=== PATIENT | male | born 1985 | race Caucasian/White ===

== ENCOUNTER 2024-01-23 19:59 | Emergency (ER) | payer BC, SELFPAY ==
--- NOTE | 2024-01-23 20:26 | ED.GENADULT ---
HPI - General Adult General Chief complaint: Dental/Oral Stated complaint: Dental implant pain/fever Time Seen by Provider: 01/24/24 03:41 Source: patient Mode of arrival: ambulatory History of Present Illness HPI narrative: 38-year-old male presents with complaints of persistent right upper pain and fevers 2 weeks after having a post placed by a dentist. Patient states that he was on clindamycin for 7 days afterwards and denies any improvement in pain, states he followed up with a dentist yesterday who then started him on azithromycin for suspected sinus infection in patient presents today stating that there seems to be no improvement. Related Data Previous Rx's ?Medication ?Instructions ?Recorded cephalexin 500 mg capsule 500 mg PO BID 7 days #14 caps 01/24/24 Allergies Allergy/AdvReac Type Severity Reaction Status Date / Time Penicillins Allergy Rash Verified 01/23/24 20:29 Review of Systems Review of Systems: Pertinent positives and negatives as stated in HPI [facility] Past Medical History Source: nursing notes reviewed Social History Social History Advance Directives: No Advance Directives Information Provided: Yes Do you have a plan to hurt others: No Plan Physical Exam ED Vital Signs: Vital Signs - 24 hr 01/23/24 20:27 01/24/24 01:59 01/24/24 04:28 Temperature 98.7 F 97.0 F 97.0 F Pulse Rate 104 H 73 73 Respiratory Rate 16 16 16 Blood Pressure 152/77 H 138/88 138/88 Pulse Oximetry 97 100 100 Oxygen Delivery Method Room Air Room Air Room Air BMI result Body Mass Index 23.1 VITAL SIGNS: Reviewed. GENERAL: Well developed, well nourished, in no acute distress. HEAD: Normocephalic/atraumatic EYES: PERRLA, EOMI OROPHARYNX: no oral lesions noted, posterior pharynx clear, 2 wires extending just in front of right upper molar, there is no surrounding gingival edema/erythema, I do not appreciate any gross purulence there is no evidence of abscess NECK: Supple, no adenopathy LUNGS: Normal breath sounds. No adventitious sounds or accessory muscle use. SpO2<100> CARDIOVASCULAR: Regular rate and rhythm without noted murmurs ABDOMEN: Soft, non-tender, non-distended with bowel sounds. MUSCULOSKELETAL: No tenderness, deformities, or effusions noted on gross inspection. EXTREMITIES: No cyanosis, clubbing or edema. SKIN: Inspection of the skin reveals no rashes NEUROLOGIC: Alert and oriented x 4. Strength and sensation to light touch were grossly intact x 4. Course Course Course Narrative: This is an RME: Additional HPI, ROS, PE not included below will be deferred to primary provider. This is a 38-year-old male presents emergency department with severe right-sided facial pain and fevers. He had a dental implant placed 2 weeks ago in his right upper gumline. He states that he has had persistent right-sided sinus pain. He also endorses fevers, congestion, foul taste in his mouth as well as odor of something ?dying? inside of his sinuses. He has been on azithromycin as well as clindamycin without any relief. Plan: Labs. Medications Administered Discontinued Medications Generic Name Dose Route Start Last Admin Trade Name Freq PRN Reason Stop Dose Admin Acetaminophen 975 mg 01/24/24 04:17 01/24/24 04:28 Acetaminophen 325 Mg Tablet PO 01/24/24 04:18 Not Given ONCE ONE Cephalexin HCl 500 mg 01/24/24 04:15 01/24/24 04:28 Cephalexin 500 Mg Capsule PO 01/24/24 04:16 Not Given ONCE ONE Ibuprofen 400 mg 01/24/24 04:17 01/24/24 04:28 Ibuprofen 400 Mg Tablet PO 01/24/24 04:18 Not Given ONCE ONE Medical Decision Making Medical Decision Making MDM Narrative: 38-year-old male with history and clinical presentation of possible combination of reaction to the dental post verses infection given his reports of fever though here in this emergency room he is been afebrile. We did discuss different approaches and the decision is that we will shift him from the course of azithromycin which he does not feel is working to an alternative medication that will cover both intraoral infections as well as sinus and he was provided with combination analgesics and initial antibiotics. I reviewed all investigations and hematologic indices were negative for leukocytosis or left shift and there is a normocytic anemia without thrombocytopenia. Chemistry indices were negative for ROSELINE/electrolyte or liver enzyme derangements and viral testing is negative for influenza/RSV/COVID-19. I was informed by nursing that patient left without receiving initial medication or discharge paperwork. Differential Diagnosis Differential Diagnoses: The differential diagnosis associated with the presentation includes Please see the discussion above Admission/Observation Consideration of admission/observation: Escalation of care including admission/observation considered Please see the discussion above Lab Data MDM Lab Attestation statement: I reviewed the patient's lab results. Please see the discussion above 01/23/24 21:10 01/23/24 21:10 Labs: Lab Results 01/23/24 Range/Units 21:10 WBC 8.8 (4.8-10.8) X10*3/uL RBC 4.41 L (4.60-5.80) X10*6/uL Hgb 13.8 L (14.0-18.0) g/dl Hct 39.7 L (42.0-52.0) % MCV 90.0 (80.0-98.0) fL MCH 31.3 (27.0-33.0) pg MCHC 34.8 (31.0-36.0) g/dl RDW 11.9 (11.0-16.0) % Plt Count 245 (160-400) X10*3/uL MPV 9.0 L (9.4-12.4) fL Immature Gran % (Auto) 0.1 (0.0-0.4) % Neut % (Auto) 72.4 (45-73) % Lymph % (Auto) 18.9 L (20-40) % Morehouse % (Auto) 7.8 (2-11) % Eos % (Auto) 0.5 (0-4) % Baso % (Auto) 0.3 (0-2) % Lymph # (Auto) 1.7 (1.2-4.9) X10*3/uL Morehouse # (Auto) 0.7 (0.1-1.2) X10*3/uL Eos # (Auto) 0.0 (0.0-0.4) X10*3/uL Baso # (Auto) 0.0 (0.0-0.2) X10*3/uL Abs Immat Gran (auto) 0.01 (0.00-0.03) X10*3/uL Absolute Neuts (auto) 6.4 (2.0-8.3) x10*3/uL Absolute Nucleated RBC 0.000 (0.0-0.012) X10*3/uL Nucleated RBC % (auto) 0.0 (0.0-0.2) /100WBC Sodium 139 (135-145) mmol/L Potassium 4.1 (3.3-5.1) mmol/L Chloride 102 (96-108) mmol/L Carbon Dioxide 29 (22-29) mmol/L Anion Gap 12 (12-20) BUN 12 (9-16) mg/dL Creatinine 0.78 (0.5-1.4) mg/dL Estim Creat Clear Calc 127.1 Estimated GFR > 60 Random Glucose 111 (60-115) mg/dL Calcium 10.3 H (8.4-10.2) mg/dL Total Bilirubin 0.5 (0.0-1.0) mg/dL Direct Bilirubin 0.2 (0.0-0.5) mg/dL AST 20 (5-37) U/L ALT 14 (0-40) U/L Alkaline Phosphatase 60 (39-117) U/L Total Protein 7.8 (6.5-8.0) g/dL Albumin 4.5 (3.5-5.0) g/dL Influenza Type A (PCR) NEGATIVE (Negative) Influenza Type B (PCR) NEGATIVE (Negative) RSV RNA Qual (PCR) NEGATIVE (Negative) SARS-CoV-2 RNA (RT-PCR) NEGATIVE (Negative) Critical Care Time Critical Care Time Critical Care Time: Yes Total Critical Care Time: 30 Attestation: I personally attest to this time spent taking care of the patient. Discharge Plan Discharge Clinical Impression: Toothache, Infection of tooth Patient Disposition: Elopement Instructions: Toothache (ED) Additional Instructions: Stop taking the azithromycin Start taking the cephalexin, obviously if you develop any rash/difficulty breathing or facial swelling please stop taking the medication immediately and proceed to the emergency room. Follow-up with Dr. Babin today Return to the ER for any worsening symptoms Prescriptions: New cephalexin 500 mg capsule 500 mg PO BID 7 Days Qty: 14 0RF Referrals: Manuel Biggs MD [Primary Care Provider] - Interventions: ED Discharge Assessment Last Done: 01/24/24 04:28 Discharge Date/Time: 01/24/24 04:30 Print Language: Maltese
[2024-01-23 20:27] VITALS: BP 152/77; PULSE 104; RESP 16; TEMP 37.1; O2SAT 97; BMI 23.1
[2024-01-23 21:16] LABS: MANUAL DIFF FLAG NO
--- NOTE | 2024-01-23 21:16 | MHC.EDTECH ---
Patient blood drawn and rsv/covid swab collected and sent to lab .
[2024-01-23 21:20] LABS: Basophils Percent Auto 0.3 % (0-2); Eosinophils Percent Auto 0.5 % (0-4); Hematocrit 39.7 % (42.0-52.0); Hemoglobin 13.8 g/dl (14.0-18.0); Imm Gran Abs Auto 0.01 X10*3/uL (0.00-0.03); Imm Gran Pct Auto 0.1 % (0.0-0.4); Lymphocytes Absolute Auto 1.7 X10*3/uL (1.2-4.9); Lymphocytes Percent Auto 18.9 % (20-40); Mean Corpuscular HGB Conc 34.8 g/dl (31.0-36.0); Mean Corpuscular Hemoglobin 31.3 pg (27.0-33.0); Monocytes Absolute Auto 0.7 X10*3/uL (0.1-1.2); Monocytes Percent Auto 7.8 % (2-11); Neutrophils Absolute Auto 6.4 x10*3/uL (2.0-8.3); Neutrophils Percent Auto 72.4 % (45-73); Platelet Count 245 X10*3/uL (160-400); Red Blood Count 4.41 X10*6/uL (4.60-5.80); Red Cell Distribution Width 11.9 % (11.0-16.0); White Blood Count 8.8 X10*3/uL (4.8-10.8)
[2024-01-23 21:35] LABS: Alanine Aminotransferase 14 U/L (0-40); Albumin Level 4.5 g/dL (3.5-5.0); Alkaline Phosphatase 60 U/L (39-117); Anion Gap 12 (12-20); Aspartate Amino Transferase 20 U/L (5-37); Bilirubin Direct 0.2 mg/dL (0.0-0.5); Bilirubin Total 0.5 mg/dL (0.0-1.0); Blood Urea Nitrogen 12 mg/dL (9-16); Calcium 10.3 mg/dL (8.4-10.2); Carbon Dioxide 29 mmol/L (22-29); Chloride 102 mmol/L (96-108); Creatinine Clr Calc Pharmacy 127.1; Estimated Glomerular Filt Rate > 60; Glucose Random 111 mg/dL (60-115); Potassium 4.1 mmol/L (3.3-5.1); Sodium 139 mmol/L (135-145); Total Protein 7.8 g/dL (6.5-8.0)
[2024-01-23 22:01] LABS: Influenza A PCR NEGATIVE (Negative); Influenza B PCR NEGATIVE (Negative); Resp Syncy Virus RNA Qual PCR NEGATIVE (Negative); SARS COV2 PCR INHOUSE NEGATIVE (Negative)
[2024-01-24 01:59] VITALS: BP 138/88; PULSE 73; RESP 16; TEMP 36.1; O2SAT 100
--- NOTE | 2024-01-24 04:10 | PC.NURSE ---
pt not in the room at this time. pt has been in the room 10 min waiting to be seen by provider
[2024-01-24 04:28] VITALS: BP 138/88; PULSE 73; RESP 16; TEMP 36.1; O2SAT 100
== END 2024-01-24 04:30 | disposition left against medical advice (07) ==
PROVIDERS: Physician Assistant Medical; Emergency Provider Student in an Organized Health Care Education/Training Program; PCP Internal Medicine
DX: K04.7 Periapical abscess without sinus (principal); K08.89 Other specified disorders of teeth and supporting structures; Z88.0 Allergy status to penicillin; Z98.890 Other specified postprocedural states; Z03.818 Encounter for observation for suspected exposure to other biological agents ruled out
CPT/HCPCS: 0241U; 80048; 80076; 85025; 99283

== ENCOUNTER 2025-07-31 15:48 | Outpatient (REF) | payer SELFPAY ==
--- OUTSIDE RECORDS SUMMARY | 2025-07-15 04:00 | XMS_ITS ---
Author Organization [facility] [address] Address [address] [place] [address] Care Team Providers Care Core Dropper Name Role Phone CINTHIA SANTOS Unavailable [phone] Encounters Encounter Location Date Provider Diagnosis [facility] [address] [place] [address] 07/15/2025 CINTHIA SANTOS Plan Of Treatment Next Appt Details Provider Name:CINTHIA SANTOS, 08:00:00 AM, [address] [facility], [place], [address], Progress Notes * AVELINA KHAN ADOB: [birth year] (39 yo M)Acc No.[id number]:07/15/2025 CPE Patient: AVELINA MATA Provider: Nehemiah SANTOS PA-C :1985 A ge:39 Y S ex:Male Date:07/15/2025 Address:[address] [place], [place] [phone] Subjective: * Chief Complaints: * * Medical History: Objective: * Vitals: Assessment: Plan: * Treatment: * Images: Billing Information: * Visit Code: * Procedure Codes: Care Plan Details* * Electronic signature of JENNIFER SANTOS PA-C on 07/31/2025 at 06:13 PM EDT Sign off status: Pending * Provider: Nehemiah SANTOS PA-C Date: Generated for Pat marsh/Faamari/eTransmitting on: 06:13 PM EDT
--- OUTSIDE RECORDS SUMMARY | 2025-07-31 06:15 | XMS_ITS ---
Author Organization [facility] [address] Address [address] [place] [address] Care Team Providers Care [employer] Name Role Phone TOM CINTHIA Unavailable [phone] Allergies Allergen (clinical drug ingredient) Drug/Non Drug Allergy documented on EMR Reaction Allergy Type Onset Date Status PCN (uncoded) hives Allergy Active amoxicillin Amoxicillin hives Drug Allergy Act maciej REASON FOR VISIT Patient is here for his Annual Physical Exam. No labs for this visit Medications Medication SIG (Take, Route, Fr equency, Duration) Notes Start Date End Date Status LORazepam 1 MG 1 tab Orally twice a day; Duration: 30 days 07/15/2025 Active Zubsolv 5.7-1.4 MG 1 tablet under the t ongue and allow to dissolve Sublingual Once a day Active Vital Signs Heart Rate 83 /min 07/31/2025 Blood pressure systolic 126 mm Hg 07/31/20 25 Blood pressure diastolic 74 mm Hg 025 Weight 156.0 lbs 07/31/2025 BMI 23.03 kg/m2 07/31/2025 Height 69 in 07/31/2025 Oximetry 97 % 07/31/2025 Encounters Encounter Location Date Provider Diagnosis [facility] [address] [place] [address] 07/31/2025 CINTHIA SANTOS Low testosterone R79 .89 ; Adult general medical exam Z00.00 ; History of opioid abuse F11.11 ; Hyperlipemia, mixed E78.2 ; Anxiety F41.9 and Encounter for examination of blood pressure without abnormal findings Z01.30 Assessments Encounter Date Diagnosis (ICD Code) Assessment Notes Treatment Notes Treatment Clinical Notes Section Notes 07/31/2025 Low testosterone (ICD-10 - R79.89) Avelina is a 39-year-old male with a past medical history of addiction, hyperlipidemia and anxiety who presents to the office today for a physical exam. #Health maintenance: Declines flu vaccine today. Will be due for his tetanus vaccination in 2025. No longer obtains COVID vaccinations. #Weight loss: Patient noted to have a weight loss from 164.9 pounds in January 2025, today's weight 156.0. Patient admits that his weight loss could be due to the amount of stress that he is enduring at this time as he lost his father in December and he unfortunately lost his job. He has started with [facility] and he states that the job so far is going well which is reassuring. Patient declines therapy resources at this time, however I did educate patient to call the office if he feels as though he would benefit from referral #History of addiction: Continue Zubsolv with [facility] prescriber once a month... #Anxiety: Continue lorazepam 1 mg tablet as needed twice daily #Constipation: Patient overall states that his constipation has improved, has a bowel movement every other day. More than likely contributed towards Zubsolv at this time. #Low testosterone: Patient did have a testosterone level completed on 12/06/2024 with a value of 252, therefore free testosterone, total, sex binding hormone and aids CMP have been ordered in preparation of potential testosterone replacement therapy.. Depending on results, will have patient follow-up with attending physician Dr. Biggs #Hyperlipidemia: Patient's recent lipid panel in November 2024 completed demonstrated an HDL of 38, LDL of 116. Patient encouraged to continue incorporating good fats into the diet such as avocado oil, fish oil to increase his HDL.. Physical Men Patient seen and examined. Comprehensive discussion was done on the following. 1. Nutrition: It is important to follow a healthy diet based on lots of vegetables and legumes and good fat. Avoid processed food and processed carbohydrates. Learn to prepare your own meals. Learn to read labels and avoid high fructose corn syrup, processed chemicals added to increase shelf life and preprepared meals. Avoid fast foods. Learn to eat slowly and plan meals for a week. Try to count calories and be mindful off daily calorie intake. Get into the habit of keeping an eye on your weight by using an appropriate scale. Learn to log exercise and discussed fitness Apps like myfitnesspal which can help keep log off calories taken versus calories burned. Local food should be preferred. Discussed Dirty Dozen Versus Clean Fifteen. Discussed healthy supplements like fish oil, Tumeric, Curcumin, Melatonin, Resveratrol, Probiotics, Vitamin-D, Alpha-Lipoic acid, Vitamin-D and coconut oil. 2. It is important to exercise regularly. Is a good habit to walk at least 30-45 minutes a day. Gentle weightlifting with standard precautions to protect the back. Finding activity like cycling or hiking and get into the habit of engaging in it. Stretching before and after the exercises important. It is also important to contact me if there are any problems like shortness of breath, chest pain, back pain and joint or muscle pain associated with the exercise. 3. Discussed age appropriate screening guidelines. Colonoscopy needs to start at age 50 with stool for occult blood as appropriate. There is a new test that can test for genetic abnormalities in the stool sample. This would not replace a colonoscopy but could be used as a screening tool for patients who do not want a colonoscopy. We discussed the importance of early detection of colon cancer. 4. Discussed current PSA screening. PSA screening can be done in most patients between age 50 and 65. However early detection of prostate cancer needs to carefully be balanced with complications with treatment. These include incontinence, impotence etc. Each patient should decide if they would like to have this test. 5. Discussed safe driving and no use of smart phone while driving 6. Age-appropriate immunizations were discussed. A tetanus booster is needed every 10 years. Flu vaccine is recommended every year just before the start of the flu season. Shingles vaccine is recommended after age 50 but not all insurances cover it. Pneumonia vaccine is given after age 65 unless there are certain comorbidities for which it is started earlier. 7. Diagnostic labs were discussed. These could include CBC CMP and lipids with fasting blood glucose and insulin levels. Vitamin D and hemoglobin A1c testing might be appropriate. All questions have been answered to patient's satisfaction. Patient verbalized understanding of diagnosis and treatments explained. Advised to call sooner prior to next visit it any questions/concerns arise. Case discussed with Julito KEARNS who reviewed the assessment and plan. Chart, medications, labs, vital signs reviewed. Dictation was accomplished with the use of [employer] voice recognition software, which is prone to medical misidentifications and grammatical errors. This are unintentional and the practitioner does try to identify and correct these, but some could still be present. Please do not hesitate to contact practitioner for clarification. 07/31/2025 Adult general medical exam (ICD-10 - Z00.00) Avelina is a 39-year-old male with a past medical history of addiction, hyperlipidemia and anxiety who presents to the office today for a physical exam. #Health maintenance: Declines flu vaccine today. Will be due for his tetanus vaccination in 2025. No longer obtains COVID vaccinations. #Weight loss: Patient noted to have a weight loss from 164.9 pounds in January 2025, today's weight 156.0. Patient admits that his weight loss could be due to the amount of stress that he is enduring at this time as he lost his father in December and he unfortunately lost his job. He has started with [facility] and he states that the job so far is going well which is reassuring. Patient declines therapy resources at this time, however I did educate patient to call the office if he feels as though he would benefit from referral #History of addiction: Continue Zubsolv with [facility] prescriber once a month... #Anxiety: Continue lorazepam 1 mg tablet as needed twice daily #Constipation: Patient overall states that his constipation has improved, has a bowel movement every other day. More than likely contributed towards Zubsolv at this time. #Low testosterone: Patient did have a testosterone level completed on 12/06/2024 with a value of 252, therefore free testosterone, total, sex binding hormone and aids CMP have been ordered in preparation of potential testosterone replacement therapy.. Depending on results, will have patient follow-up with attending physician Dr. Biggs #Hyperlipidemia: Patient's recent lipid panel in November 2024 completed demonstrated an HDL of 38, LDL of 116. Patient encouraged to continue incorporating good fats into the diet such as avocado oil, fish oil to increase his HDL.. Physical Men Patient seen and examined. Comprehensive discussion was done on the following. 1. Nutrition: It is important to follow a healthy diet based on lots of vegetables and legumes and good fat. Avoid processed food and processed carbohydrates. Learn to prepare your own meals. Learn to read labels and avoid high fructose corn syrup, processed chemicals added to increase shelf life and preprepared meals. Avoid fast foods. Learn to eat slowly and plan meals for a week. Try to count calories and be mindful off daily calorie intake. Get into the habit of keeping an eye on your weight by using an appropriate scale. Learn to log exercise and discussed fitness Apps like [employer] which can help keep log off calories taken versus calories burned. Local food should be preferred. Discussed Dirty Dozen Versus Clean Fifteen. Discussed healthy supplements like fish oil, Tumeric, Curcumin, Melatonin, Resveratrol, Probiotics, Vitamin-D, Alpha-Lipoic acid, Vitamin-D and coconut oil. 2. It is important to exercise regularly. Is a good habit to walk at least 30-45 minutes a day. Gentle weightlifting with standard precautions to protect the back. Finding activity like cycling or hiking and get into the habit of engaging in it. Stretching before and after the exercises important. It is also important to contact me if there are any problems like shortness of breath, chest pain, back pain and joint or muscle pain associated with the exercise. 3. Discussed age appropriate screening guidelines. Colonoscopy needs to start at age 50 with stool for occult blood as appropriate. There is a new test that can test for genetic abnormalities in the stool sample. This would not replace a colonoscopy but could be used as a screening tool for patients who do not want a colonoscopy. We discussed the importance of early detection of colon cancer. 4. Discussed current PSA screening. PSA screening can be done in most patients between age 50 and 65. However early detection of prostate cancer needs to carefully be balanced with complications with treatment. These include incontinence, impotence etc. Each patient should decide if they would like to have this test. 5. Discussed safe driving and no use of smart phone while driving 6. Age-appropriate immunizations were discussed. A tetanus booster is needed every 10 years. Flu vaccine is recommended every year just before the start of the flu season. Shingles vaccine is recommended after age 50 but not all insurances cover it. Pneumonia vaccine is given after age 65 unless there are certain comorbidities for which it is started earlier. 7. Diagnostic labs were discussed. These could include CBC CMP and lipids with fasting blood glucose and insulin levels. Vitamin D and hemoglobin A1c testing might be appropriate. All questions have been answered to patient's satisfaction. Patient verbalized understanding of diagnosis and treatments explained. Advised to call sooner prior to next visit it any questions/concerns arise. Case discussed with Julito KEARNS who reviewed the assessment and plan. Chart, medications, labs, vital signs reviewed. Dictation was accomplished with the use of [employer] voice recognition software, which is prone to medical misidentifications and grammatical errors. This are unintentional and the practitioner does try to identify and correct these, but some could still be present. Please do not hesitate to contact practitioner for clarification. 07/31/2025 History of opioid abuse (ICD-10 - F11.11) Avelina is a 39-year-old male with a past medical history of addiction, hyperlipidemia and anxiety who presents to the office today for a physical exam. #Health maintenance: Declines flu vaccine today. Will be due for his tetanus vaccination in 2025. No longer obtains COVID vaccinations. #Weight loss: Patient noted to have a weight loss from 164.9 pounds in January 2025, today's weight 156.0. Patient admits that his weight loss could be due to the amount of stress that he is enduring at this time as he lost his father in December and he unfortunately lost his job. He has started with [facility] and he states that the job so far is going well which is reassuring. Patient declines therapy resources at this time, however I did educate patient to call the office if he feels as though he would benefit from referral #History of addiction: Continue Zubsolv with [facility] prescriber once a month... #Anxiety: Continue lorazepam 1 mg tablet as needed twice daily #Constipation: Patient overall states that his constipation has improved, has a bowel movement every other day. More than likely contributed towards Zubsolv at this time. #Low testosterone: Patient did have a testosterone level completed on 12/06/2024 with a value of 252, therefore free testosterone, total, sex binding hormone and aids CMP have been ordered in preparation of potential testosterone replacement therapy.. Depending on results, will have patient follow-up with attending physician Dr. Biggs #Hyperlipidemia: Patient's recent lipid panel in November 2024 completed demonstrated an HDL of 38, LDL of 116. Patient encouraged to continue incorporating good fats into the diet such as avocado oil, fish oil to increase his HDL.. Physical Men Patient seen and examined. Comprehensive discussion was done on the following. 1. Nutrition: It is important to follow a healthy diet based on lots of vegetables and legumes and good fat. Avoid processed food and processed carbohydrates. Learn to prepare your own meals. Learn to read labels and avoid high fructose corn syrup, processed chemicals added to increase shelf life and preprepared meals. Avoid fast foods. Learn to eat slowly and plan meals for a week. Try to count calories and be mindful off daily calorie intake. Get into the habit of keeping an eye on your weight by using an appropriate scale. Learn to log exercise and discussed fitness Apps like [employer] which can help keep log off calories taken versus calories burned. Local food should be preferred. Discussed Dirty Dozen Versus Clean Fifteen. Discussed healthy supplements like fish oil, Tumeric, Curcumin, Melatonin, Resveratrol, Probiotics, Vitamin-D, Alpha-Lipoic acid, Vitamin-D and coconut oil. 2. It is important to exercise regularly. Is a good habit to walk at least 30-45 minutes a day. Gentle weightlifting with standard precautions to protect the back. Finding activity like cycling or hiking and get into the habit of engaging in it. Stretching before and after the exercises important. It is also important to contact me if there are any problems like shortness of breath, chest pain, back pain and joint or muscle pain associated with the exercise. 3. Discussed age appropriate screening guidelines. Colonoscopy needs to start at age 50 with stool for occult blood as appropriate. There is a new test that can test for genetic abnormalities in the stool sample. This would not replace a colonoscopy but could be used as a screening tool for patients who do not want a colonoscopy. We discussed the importance of early detection of colon cancer. 4. Discussed current PSA screening. PSA screening can be done in most patients between age 50 and 65. However early detection of prostate cancer needs to carefully be balanced with complications with treatment. These include incontinence, impotence etc. Each patient should decide if they would like to have this test. 5. Discussed safe driving and no use of smart phone while driving 6. Age-appropriate immunizations were discussed. A tetanus booster is needed every 10 years. Flu vaccine is recommended every year just before the start of the flu season. Shingles vaccine is recommended after age 50 but not all insurances cover it. Pneumonia vaccine is given after age 65 unless there are certain comorbidities for which it is started earlier. 7. Diagnostic labs were discussed. These could include CBC CMP and lipids with fasting blood glucose and insulin levels. Vitamin D and hemoglobin A1c testing might be appropriate. All questions have been answered to patient's satisfaction. Patient verbalized understanding of diagnosis and treatments explained. Advised to call sooner prior to next visit it any questions/concerns arise. Case discussed with Julito KEARNS who reviewed the assessment and plan. Chart, medications, labs, vital signs reviewed. Dictation was accomplished with the use of [employer] voice recognition software, which is prone to medical misidentifications and grammatical errors. This are unintentional and the practitioner does try to identify and correct these, but some could still be present. Please do not hesitate to contact practitioner for clarification. 07/31/2025 Hyperlipemia, mixed (ICD-10 - E78.2) Avelina is a 39-year-old male with a past medical history of addiction, hyperlipidemia and anxiety who presents to the office today for a physical exam. #Health maintenance: Declines flu vaccine today. Will be due for his tetanus vaccination in 2025. No longer obtains COVID vaccinations. #Weight loss: Patient noted to have a weight loss from 164.9 pounds in January 2025, today's weight 156.0. Patient admits that his weight loss could be due to the amount of stress that he is enduring at this time as he lost his father in December and he unfortunately lost his job. He has started with [facility] and he states that the job so far is going well which is reassuring. Patient declines therapy resources at this time, however I did educate patient to call the office if he feels as though he would benefit from referral #History of addiction: Continue Zubsolv with [facility] prescriber once a month... #Anxiety: Continue lorazepam 1 mg tablet as needed twice daily #Constipation: Patient overall states that his constipation has improved, has a bowel movement every other day. More than likely contributed towards Zubsolv at this time. #Low testosterone: Patient did have a testosterone level completed on 12/06/2024 with a value of 252, therefore free testosterone, total, sex binding hormone and aids CMP have been ordered in preparation of potential testosterone replacement therapy.. Depending on results, will have patient follow-up with attending physician Dr. Biggs #Hyperlipidemia: Patient's recent lipid panel in November 2024 completed demonstrated an HDL of 38, LDL of 116. Patient encouraged to continue incorporating good fats into the diet such as avocado oil, fish oil to increase his HDL.. Physical Men Patient seen and examined. Comprehensive discussion was done on the following. 1. Nutrition: It is important to follow a healthy diet based on lots of vegetables and legumes and good fat. Avoid processed food and processed carbohydrates. Learn to prepare your own meals. Learn to read labels and avoid high fructose corn syrup, processed chemicals added to increase shelf life and preprepared meals. Avoid fast foods. Learn to eat slowly and plan meals for a week. Try to count calories and be mindful off daily calorie intake. Get into the habit of keeping an eye on your weight by using an appropriate scale. Learn to log exercise and discussed fitness Apps like [employer] which can help keep log off calories taken versus calories burned. Local food should be preferred. Discussed Dirty Dozen Versus Clean Fifteen. Discussed healthy supplements like fish oil, Tumeric, Curcumin, Melatonin, Resveratrol, Probiotics, Vitamin-D, Alpha-Lipoic acid, Vitamin-D and coconut oil. 2. It is important to exercise regularly. Is a good habit to walk at least 30-45 minutes a day. Gentle weightlifting with standard precautions to protect the back. Finding activity like cycling or hiking and get into the habit of engaging in it. Stretching before and after the exercises important. It is also important to contact me if there are any problems like shortness of breath, chest pain, back pain and joint or muscle pain associated with the exercise. 3. Discussed age appropriate screening guidelines. Colonoscopy needs to start at age 50 with stool for occult blood as appropriate. There is a new test that can test for genetic abnormalities in the stool sample. This would not replace a colonoscopy but could be used as a screening tool for patients who do not want a colonoscopy. We discussed the importance of early detection of colon cancer. 4. Discussed current PSA screening. PSA screening can be done in most patients between age 50 and 65. However early detection of prostate cancer needs to carefully be balanced with complications with treatment. These include incontinence, impotence etc. Each patient should decide if they would like to have this test. 5. Discussed safe driving and no use of smart phone while driving 6. Age-appropriate immunizations were discussed. A tetanus booster is needed every 10 years. Flu vaccine is recommended every year just before the start of the flu season. Shingles vaccine is recommended after age 50 but not all insurances cover it. Pneumonia vaccine is given after age 65 unless there are certain comorbidities for which it is started earlier. 7. Diagnostic labs were discussed. These could include CBC CMP and lipids with fasting blood glucose and insulin levels. Vitamin D and hemoglobin A1c testing might be appropriate. All questions have been answered to patient's satisfaction. Patient verbalized understanding of diagnosis and treatments explained. Advised to call sooner prior to next visit it any questions/concerns arise. Case discussed with Julito KEARNS who reviewed the assessment and plan. Chart, medications, labs, vital signs reviewed. Dictation was accomplished with the use of [employer] voice recognition software, which is prone to medical misidentifications and grammatical errors. This are unintentional and the practitioner does try to identify and correct these, but some could still be present. Please do not hesitate to contact practitioner for clarification. 07/31/2025 Anxiety (ICD-10 - F41.9) Avelina is a 39-year-old male with a past medical history of addiction, hyperlipidemia and anxiety who presents to the office today for a physical exam. #Health maintenance: Declines flu vaccine today. Will be due for his tetanus vaccination in 2025. No longer obtains COVID vaccinations. #Weight loss: Patient noted to have a weight loss from 164.9 pounds in January 2025, today's weight 156.0. Patient admits that his weight loss could be due to the amount of stress that he is enduring at this time as he lost his father in December and he unfortunately lost his job. He has started with [facility] and he states that the job so far is going well which is reassuring. Patient declines therapy resources at this time, however I did educate patient to call the office if he feels as though he would benefit from referral #History of addiction: Continue Zubsolv with [facility] prescriber once a month... #Anxiety: Continue lorazepam 1 mg tablet as needed twice daily #Constipation: Patient overall states that his constipation has improved, has a bowel movement every other day. More than likely contributed towards Zubsolv at this time. #Low testosterone: Patient did have a testosterone level completed on 12/06/2024 with a value of 252, therefore free testosterone, total, sex binding hormone and aids CMP have been ordered in preparation of potential testosterone replacement therapy.. Depending on results, will have patient follow-up with attending physician Dr. Biggs #Hyperlipidemia: Patient's recent lipid panel in November 2024 completed demonstrated an HDL of 38, LDL of 116. Patient encouraged to continue incorporating good fats into the diet such as avocado oil, fish oil to increase his HDL.. Physical Men Patient seen and examined. Comprehensive discussion was done on the following. 1. Nutrition: It is important to follow a healthy diet based on lots of vegetables and legumes and good fat. Avoid processed food and processed carbohydrates. Learn to prepare your own meals. Learn to read labels and avoid high fructose corn syrup, processed chemicals added to increase shelf life and preprepared meals. Avoid fast foods. Learn to eat slowly and plan meals for a week. Try to count calories and be mindful off daily calorie intake. Get into the habit of keeping an eye on your weight by using an appropriate scale. Learn to log exercise and discussed fitness Apps like [employer] which can help keep log off calories taken versus calories burned. Local food should be preferred. Discussed Dirty Dozen Versus Clean Fifteen. Discussed healthy supplements like fish oil, Tumeric, Curcumin, Melatonin, Resveratrol, Probiotics, Vitamin-D, Alpha-Lipoic acid, Vitamin-D and coconut oil. 2. It is important to exercise regularly. Is a good habit to walk at least 30-45 minutes a day. Gentle weightlifting with standard precautions to protect the back. Finding activity like cycling or hiking and get into the habit of engaging in it. Stretching before and after the exercises important. It is also important to contact me if there are any problems like shortness of breath, chest pain, back pain and joint or muscle pain associated with the exercise. 3. Discussed age appropriate screening guidelines. Colonoscopy needs to start at age 50 with stool for occult blood as appropriate. There is a new test that can test for genetic abnormalities in the stool sample. This would not replace a colonoscopy but could be used as a screening tool for patients who do not want a colonoscopy. We discussed the importance of early detection of colon cancer. 4. Discussed current PSA screening. PSA screening can be done in most patients between age 50 and 65. However early detection of prostate cancer needs to carefully be balanced with complications with treatment. These include incontinence, impotence etc. Each patient should decide if they would like to have this test. 5. Discussed safe driving and no use of smart phone while driving 6. Age-appropriate immunizations were discussed. A tetanus booster is needed every 10 years. Flu vaccine is recommended every year just before the start of the flu season. Shingles vaccine is recommended after age 50 but not all insurances cover it. Pneumonia vaccine is given after age 65 unless there are certain comorbidities for which it is started earlier. 7. Diagnostic labs were discussed. These could include CBC CMP and lipids with fasting blood glucose and insulin levels. Vitamin D and hemoglobin A1c testing might be appropriate. All questions have been answered to patient's satisfaction. Patient verbalized understanding of diagnosis and treatments explained. Advised to call sooner prior to next visit it any questions/concerns arise. Case discussed with Julito KEARNS who reviewed the assessment and plan. Chart, medications, labs, vital signs reviewed. Dictation was accomplished with the use of [employer] voice recognition software, which is prone to medical misidentifications and grammatical errors. This are unintentional and the practitioner does try to identify and correct these, but some could still be present. Please do not hesitate to contact practitioner for clarification. 07/31/2025 Encounter for examination of blood pressure without abnormal findings (ICD-10 - Z01.30) Avelina is a 39-year-old male with a past medical history of addiction, hyperlipidemia and anxiety who presents to the office today for a physical exam. #Health maintenance: Declines flu vaccine today. Will be due for his tetanus vaccination in 2025. No longer obtains COVID vaccinations. #Weight loss: Patient noted to have a weight loss from 164.9 pounds in January 2025, today's weight 156.0. Patient admits that his weight loss could be due to the amount of stress that he is enduring at this time as he lost his father in December and he unfortunately lost his job. He has started with [facility] and he states that the job so far is going well which is reassuring. Patient declines therapy resources at this time, however I did educate patient to call the office if he feels as though he would benefit from referral #History of addiction: Continue Zubsolv with [facility] prescriber once a month... #Anxiety: Continue lorazepam 1 mg tablet as needed twice daily #Constipation: Patient overall states that his constipation has improved, has a bowel movement every other day. More than likely contributed towards Zubsolv at this time. #Low testosterone: Patient did have a testosterone level completed on 12/06/2024 with a value of 252, therefore free testosterone, total, sex binding hormone and aids CMP have been ordered in preparation of potential testosterone replacement therapy.. Depending on results, will have patient follow-up with attending physician Dr. Biggs #Hyperlipidemia: Patient's recent lipid panel in November 2024 completed demonstrated an HDL of 38, LDL of 116. Patient encouraged to continue incorporating good fats into the diet such as avocado oil, fish oil to increase his HDL.. Physical Men Patient seen and examined. Comprehensive discussion was done on the following. 1. Nutrition: It is important to follow a healthy diet based on lots of vegetables and legumes and good fat. Avoid processed food and processed carbohydrates. Learn to prepare your own meals. Learn to read labels and avoid high fructose corn syrup, processed chemicals added to increase shelf life and preprepared meals. Avoid fast foods. Learn to eat slowly and plan meals for a week. Try to count calories and be mindful off daily calorie intake. Get into the habit of keeping an eye on your weight by using an appropriate scale. Learn to log exercise and discussed fitness Apps like [employer] which can help keep log off calories taken versus calories burned. Local food should be preferred. Discussed Dirty Dozen Versus Clean Fifteen. Discussed healthy supplements like fish oil, Tumeric, Curcumin, Melatonin, Resveratrol, Probiotics, Vitamin-D, Alpha-Lipoic acid, Vitamin-D and coconut oil. 2. It is important to exercise regularly. Is a good habit to walk at least 30-45 minutes a day. Gentle weightlifting with standard precautions to protect the back. Finding activity like cycling or hiking and get into the habit of engaging in it. Stretching before and after the exercises important. It is also important to contact me if there are any problems like shortness of breath, chest pain, back pain and joint or muscle pain associated with the exercise. 3. Discussed age appropriate screening guidelines. Colonoscopy needs to start at age 50 with stool for occult blood as appropriate. There is a new test that can test for genetic abnormalities in the stool sample. This would not replace a colonoscopy but could be used as a screening tool for patients who do not want a colonoscopy. We discussed the importance of early detection of colon cancer. 4. Discussed current PSA screening. PSA screening can be done in most patients between age 50 and 65. However early detection of prostate cancer needs to carefully be balanced with complications with treatment. These include incontinence, impotence etc. Each patient should decide if they would like to have this test. 5. Discussed safe driving and no use of smart phone while driving 6. Age-appropriate immunizations were discussed. A tetanus booster is needed every 10 years. Flu vaccine is recommended every year just before the start of the flu season. Shingles vaccine is recommended after age 50 but not all insurances cover it. Pneumonia vaccine is given after age 65 unless there are certain comorbidities for which it is started earlier. 7. Diagnostic labs were discussed. These could include CBC CMP and lipids with fasting blood glucose and insulin levels. Vitamin D and hemoglobin A1c testing might be appropriate. All questions have been answered to patient's satisfaction. Patient verbalized understanding of diagnosis and treatments explained. Advised to call sooner prior to next visit it any questions/concerns arise. Case discussed with Julito KEARNS who reviewed the assessment and plan. Chart, medications, labs, vital signs reviewed. Dictation was accomplished with the use of [employer] voice recognition software, which is prone to medical misidentifications and grammatical errors. This are unintentional and the practitioner does try to identify and correct these, but some could still be present. Please do not hesitate to contact practitioner for clarification. Plan Of Treatment Pending Test Test Name Order Date Testosterone,Free and Total 07/31/2025 COMPREHENSIVE METABOLIC PANEL 07/31/2025 URINALYSIS, COMPLETE 07/31/2025 VITAMIN B12 07/31/2025 VITAMIN D,25-OH,TOTAL,IA 07/31/2025 Sex Hormone Binding Globulin 07/31/2025 Next Appt Details Provider Name:CINTHIA SANTOS, 08:00:00 AM, [address], [place], [address], Progress Notes * AVELINA KHAN ADOB: [birth year] (39 yo M)Acc No.[id number]:07/31/2025 CPE Patient: Janes EVANSVERONICA AVELINA King Provider: Nehemiah SANTOS PA-C :1985 A ge:39 Y S ex:Male Date:07/31/2025 Address:[address] [place], [place] [id number] Subjective: * Chief Complaints: * 1 . Patient is here for his Annual Physical Exam. No labs for this visit. * HPI: C onstitutional: Avelina is a 39-year-old male with a past medical history of addiction, hyperlipidemia and anxiety who presents to the office today for physical exam.Patient admits that he recently lost his job and his father in December which has contributed towards a lot of stress in his life. Dentist: 6 months Yearly: Once Specalists: [place] Provider for For Zubsolv Flu: Declines Tdap: 2016 COVID: 2020 x 3 Health Care Proxy: PHQ-9:1. * ROS: C onstitutional: Patient denies any excessive fatigue with exercise, no weight loss, no fever and no night sweats Eyes: No eye discharge, no itching, no redness. Advised the significance of regular eye exams to screen for glaucoma and other eye problems Ear nose throat: No sore throat, postnasal drip, runny nose, Sneezing Cardiovascular: No chest pain, no shortness of breath, no dyspnea on exertion, no PND, no orthopnea, no irregular pulse Respiratory: No chronic cough, no hemoptysis, no sputum, no wheezing GI, no diarrhea, no constipation no blood in the stools, no pain associated with eating, no indigestion Genitourinary: No painful urination no hesitancy no blood in the urine Musculoskeletal, no limitations to walking and running, no joint deformity, no joint stiffness, no chronic back pain, no noise with joint movement Integumentary, no new skin rash. No new changes in skin moles Neurological: No history of seizures, memory loss, No language dysfunction, No inability to concentrate, no localized weakness, no sensation loss, no confusion Psychiatric: No depression, no suicidal thoughts, +anxiety Endocrine: No polyuria no polyphagia or polydipsia, no heat intolerance no cold intolerance Hematological: No easy bruising or Lymph node swelling. * Medical History: A ddiction, Hyperlipemia, mixed, Anxiety. * Surgical History: D enies Past Surgical History. * Hospitalization/Major Diagno stic Procedure: [facility] tooth extraction complication Jan 2024. * Family History: F ather: alive, Ulcerative colitis, HTN, HLD, T2DM. M other: alive, HTN. M aternal Grand Mother: esophageal cancer. M aternal aunt: Colorectal cancer, pancreatic cancer. 3 sister(s) . 1 son(s) , 1 daughter(s) - healthy. . Oldest 19, 15, 12. * Social History: A lcohol: denies tob: quit 7 years ago drug: [facility]. * Medications: T aking Zubsolv 5.7-1.4 MG Tablet Sublingual 1 tablet under the tongue and allow to dissolve Sublingual Once a day , Taking LORazepam 1 MG Tablet 1 tab Orally twice a day , Medication List reviewed and reconciled with the patient * Allergies: P CN: hives, Amoxicillin: hives - Allergy. Objective: * Vitals: H R:83/min, BP:126/74mm Hg, Wt:156.0lbs, BMI:23.03Index, Ht: 69 in, Oxygen sat %:97%. * Physical Examination: G eneral: Patient is age appropriate, well appearing, no acute distress, speaking in full sentences without respiratory compromise. Well groomed, well developed. Skin: Warm, dry and intact. No lesions/rashes. HEENT: Normocephalic/atraumatic. EOMI intact. PERRLA. Vision intact. No ptosis or lid lag. Nares without discharge or inflammation. Oral cavity free of plaques or exudates. Dentition well maintained. No pharyngeal erythema. Ears are clear bilaterally, TM are clear of air fluid levels or bulging. Neck: Supple, with no lymphadenopathy. Lung: Clear to auscultation bilaterally, no wheezes, rales or rhonchi. No barrel chest. Cardiac: S1 and S2 appreciated. No murmurs/rubs or gallops. DP pulses intact 2+ bilaterally. Abdomen: Soft, nontender, normoactive bowel sounds. No rebound/guarding. No CVA tenderness. Extremities: Bilateral lower extremities with no edema or rubor. No evidence of varicose veins.? MSK: Bilateral upper and lower extremities 5/5 strength with flexion/extension. Air Surveillance Operator strength 5/5. Neuro: Steady gait with ambulation observed. Psych: Stable mood and affect. Assessment: * Assessment: 1. A dult general medical exam - Z00.00 (Primary) 2 . L ow testosterone - R79.89 3 . H istory of opioid abuse - F11.11 4 . H yperlipemia, mixed - E78.2 5 . A nxiety - F41.9 6 . E ncounter for examination of blood pressure without abnormal findings - Z01.30 Avelina is a 39-year-old male with a past medical history of addiction, hyperlipidemia and anxiety who presents to the office today for a physical exam. #Health maintenance: Declines flu vaccine today. Will be due for his tetanus vaccination in 2025. No longer obtains COVID vaccinations. #Weight loss: Patient noted to have a weight loss from 164.9 pounds in January 2025, today's weight 156.0. Patient admits that his weight loss could be due to the amount of stress that he is enduring at this time as he lost his father in December and he unfortunately lost his job. He has started with [facility] and he states that the job so far is going well which is reassuring. Patient declines therapy resources at this time, however I did educate patient to call the office if he feels as though he would benefit from referral #History of addiction: Continue Zubsolv with [facility] prescriber once a month... #Anxiety: Continue lorazepam 1 mg tablet as needed twice daily #Constipation: Patient overall states that his constipation has improved, has a bowel movement every other day. More than likely contributed towards Zubsolv at this time. #Low testosterone: Patient did have a testosterone level completed on 12/06/2024 with a value of 252, therefore free testosterone, total, sex binding hormone and aids CMP have been ordered in preparation of potential testosterone replacement therapy.. Depending on results, will have patient follow-up with attending physician Dr. Biggs #Hyperlipidemia: Patient's recent lipid panel in November 2024 completed demonstrated an HDL of 38, LDL of 116. Patient encouraged to continue incorporating good fats into the diet such as avocado oil, fish oil to increase his HDL.. Physical Men Patient seen and examined. Comprehensive discussion was done on the following. 1. Nutrition: It is important to follow a healthy diet based on lots of vegetables and legumes and good fat. Avoid processed food and processed carbohydrates. Learn to prepare your own meals. Learn to read labels and avoid high fructose corn syrup, processed chemicals added to increase shelf life and preprepared meals. Avoid fast foods. Learn to eat slowly and plan meals for a week. Try to count calories and be mindful off daily calorie intake. Get into the habit of keeping an eye on your weight by using an appropriate scale. Learn to log exercise and discussed fitness Apps like [employer] which can help keep log off calories taken versus calories burned. Local food should be preferred. Discussed Dirty Dozen Versus Clean Fifteen. Discussed healthy supplements like fish oil, Tumeric, Curcumin, Melatonin, Resveratrol, Probiotics, Vitamin-D, Alpha-Lipoic acid, Vitamin-D and coconut oil. 2. It is important to exercise regularly. Is a good habit to walk at least 30-45 minutes a day. Gentle weightlifting with standard precautions to protect the back. Finding activity like cycling or hiking and get into the habit of engaging in it. Stretching before and after the exercises important. It is also important to contact me if there are any problems like shortness of breath, chest pain, back pain and joint or muscle pain associated with the exercise. 3. Discussed age appropriate screening guidelines. Colonoscopy needs to start at age 50 with stool for occult blood as appropriate. There is a new test that can test for genetic abnormalities in the stool sample. This would not replace a colonoscopy but could be used as a screening tool for patients who do not want a colonoscopy. We discussed the importance of early detection of colon cancer. 4. Discussed current PSA screening. PSA screening can be done in most patients between age 50 and 65. However early detection of prostate cancer needs to carefully be balanced with complications with treatment. These include incontinence, impotence etc. Each patient should decide if they would like to have this test. 5. Discussed safe driving and no use of smart phone while driving 6. Age-appropriate immunizations were discussed. A tetanus booster is needed every 10 years. Flu vaccine is recommended every year just before the start of the flu season. Shingles vaccine is recommended after age 50 but not all insurances cover it. Pneumonia vaccine is given after age 65 unless there are certain comorbidities for which it is started earlier. 7. Diagnostic labs were discussed. These could include CBC CMP and lipids with fasting blood glucose and insulin levels. Vitamin D and hemoglobin A1c testing might be appropriate. All questions have been answered to patient's satisfaction. Patient verbalized understanding of diagnosis and treatments explained. Advised to call sooner prior to next visit it any questions/concerns arise. Case discussed with Julito KEARNS who reviewed the assessment and plan. Chart, medications, labs, vital signs reviewed. Dictation was accomplished with the use of [employer] voice recognition software, which is prone to medical misidentifications and grammatical errors. This are unintentional and the practitioner does try to identify and correct these, but some could still be present. Please do not hesitate to contact practitioner for clarification. Plan: * Treatment: 2. L ow testosterone L AB: Testosterone,Free and Total L AB: Sex Hormone Binding Globulin * Labs: * L ab: VITAMIN D,25-OH,TOTAL,IA L ab: VITAMIN B12 * Procedure Codes: 3 074F SYST BP LT 130 MM HG, 3078F DIAST BP < 80 MM HG * Images: Billing Information: * Visit Code: 24053 Preventive Care Est Pt. Age 40-64. Modifiers: SA * Procedure Codes: 3074F SYST BP LT 130 MM HG. 3078F DIAST BP < 80 MM HG. Care Plan Details* * Sign off status: Completed true * Provider: Nehemiah SANTOS PA-C Date: Generated for Pat marsh/Janna/Joeitting on: 06:13 PM EDT History and Physical Notes * Physical Examination Category Sub-Category Detail Notes Section Note s General: Patient is age appropriate, well appearing, no acute distress, speaking in full sentences without respiratory compromise. Well groomed, well developed. Skin: Warm, dry and intact. No lesions/rashes. HEENT: Normocephalic/atraumatic. EOMI intact. PERRLA. Vision intact. No ptosis or lid lag. Nares without discharge or inflammation. Oral cavity free of plaques or exudates. Dentition well maintained. No pharyngeal erythema. Ears are clear bilaterally, TM are clear of air fluid levels or bulging. Neck: Supple, with no lymphadenopathy. Lung: Clear to auscultation bilaterally, no wheezes, rales or rhonchi. No barrel chest. Cardiac: S1 and S2 appreciated. No murmurs/rubs or gallops. DP pulses intact 2+ bilaterally. Abdomen: Soft, nontender, normoactive bowel sounds. No rebound/guarding. No CVA tenderness. Extremities: Bilateral lower extremities with no edema or rubor. No evidence of varicose veins. MSK: Bilateral upper and lower extremities 5/5 strength with flexion/extension. Air Surveillance Operator strength 5/5. Neuro: Steady gait with ambulation observed. Psych: Stable mood and affect
[2025-07-31 17:54] LABS: Appearance Urine Clear; Glucose Urine UA Negative (Negative); PH 5.5 (5.0-9.0); Specific Gravity - Urine 1.020 (1.005-1.025)
[2025-07-31 18:07] LABS: Alanine Aminotransferase 22 U/L (0-40); Albumin Level 4.9 g/dL (3.5-5.0); Alkaline Phosphatase 58 U/L (39-117); Anion Gap 13 (12-20); Aspartate Amino Transferase 34 U/L (5-37); Blood Urea Nitrogen 13 mg/dL (9-16); Calcium 9.8 mg/dL (8.4-10.2); Carbon Dioxide 30 mmol/L (22-29); Chloride 102 mmol/L (96-108); Estimated Glomerular Filt Rate > 60; Potassium 4.0 mmol/L (3.3-5.1); Sodium 141 mmol/L (135-145); Total Protein 7.4 g/dL (6.5-8.0)
--- OUTSIDE RECORDS SUMMARY | 2025-07-31 18:13 | XMS_ITS | Clinical Summary ---
Author Organization [facility] Address [address] [place] [address] Care Team Providers Care Link Knitting Machine Operator Name Role Phone Unavailable Primary Care Provider Unavailabl e Social History Tobacco Use Types Packs/Day Years Used Date Smoking Tobacco: Never Assessed Sex and Gender Information Value Date Recorded Sex Assigned at Not on file Gender Identity Not on file Sexual Orientation Not on file Job Start Date Occupation Industry Not on file Not on file Not on file Plan of Treatment Health Maintenance Due Date Last Done Comments Hepatitis B Vaccines (1 of 3 - 3-dose series) 1984 Hepatitis C Screening 1985 COVID-19 Vaccine (#1) 02/08/1985 Depression Screening 1996 Preventative Health Evaluation 2002 DTap / Tdap / Td (1 - Tdap) 2003 Influenza Vaccine (#1) 2025 Pneumococcal Vaccine Aged Out No long er eligible based on patient's age to complete this topic RSV Ped < 20 months Aged Out No longe r eligible based on patient's age to complete this topic
--- OUTSIDE RECORDS SUMMARY | 2025-07-31 18:13 | XMS_ITS | Patient Health Record ---
Author Organization [facility] [address] Address [address] [place] [address] Care Team Providers Care Biometry Teacher Name Role Phone CINTHIA SANTOS Unavailable [phone] BIGGSFCO AGGARWAL Unavailable [phone] LILIANA FABIAN Unavailable [phone] MCKOYCHAGO ROBERTSONY Unavailable [phone] EDELMIRARINA Unavailable [phone] NATALIYA ALBERTS Unavailable [phone] Allergies Allergen (clinical drug ingredient) Drug/Non Drug Allergy documented on EMR Reaction Allergy Type Onset Date Status PCN (uncoded) hives Allergy Active amoxicillin Amoxicillin hives Drug Allergy Act maciej Results Component Value Reference Range Notes Lipid Panel-[id number] Reviewed date:12/13/2024 08:23:19 AM Interpretation: Performing Lab:[facility], Phone - [phone], Director - Arvin Notes/Report: Cholesterol, Total 177 100-199 mg/dL Triglycerides 129 0-149 mg/dL HDL Cholesterol 38 >39 mg/dL VLDL Cholesterol Eloy 23 5-40 mg/dL LDL Chol Calc (NIH) 116 0-99 mg/dL Testosterone, Total, LC/MS-0 43964 Reviewed date:12/25/2024 01:20:06 PM Interpretation: Performing Lab:[facility], Phone - [phone], Director - Arvin Notes/Report: Testosterone, Total, LC/MS 252 This test was developed and its performance characteristics determined by [facility]. It has not been cleared or approved by the Food and Drug Administration. Reference Range: Adult Males >18 years 264 - 916 This [facility] LC/MS-MS method is currently certified by the CDC Hormone Standardization Program (HoST). Adult male reference interval is based on a population of healthy nonobese males (BMI <30) between 19 and 39 years old. Paresh, et.al. JCEM 2017,102;4263-3610 PMID: [id number]. CBC With Differential/Platel et-[id number] Reviewed date:12/09/2024 08:49:18 AM Interpretation: Performing Lab:[facility], Phone - [phone], Director - MDJodry Notes/Report: WBC 4.0 3.4-10.8 x10E3/uL RBC 4.43 4.14-5.80 x10E6/uL Hemoglobin 14.4 13.0-17.7 g/dL Hematocrit 41.5 37.5-51.0 % MCV 94 79-97 fL MCH 32.5 26.6-33.0 pg MCHC 34.7 31.5-35.7 g/dL RDW 12.4 11.6-15.4 % Platelets 180 150-450 x10E3/uL Neutrophils 41 Not Estab. % Lymphs 42 Not Estab. % Monocytes 11 Not Estab. % Eos 5 Not Estab. % Basos 1 Not Estab. % Neutrophils (Absolute) 1.7 1.4-7.0 x10E3/uL Lymphs (Absolute) 1.7 0.7-3.1 x10E3/uL Monocytes(Absolute) 0.4 0.1-0.9 x10E3/uL Eos (Absolute) 0.2 0.0-0.4 x10E3/uL Baso (Absolute) 0.0 0.0-0.2 x10E3/uL Immature Granulocytes 0 Not Estab. % Immature Grans (Abs) 0.0 0.0-0.1 x10E3/uL [id number]-[id number] Reviewed date:12/09/2024 08:49:18 AM Interpretation: Performing Lab:[facility], [address] [facility], [place], Phone - [phone], Director - MDJodry Notes/Report: TSH 1.260 0.450-4.500 uIU/mL Reason For Referral No Information Medications Medication SIG (Take, Route, Fr equency, Duration) Notes Start Date End Date Status LORazepam 1 MG 1 tab Orally twice a day; Duration: 30 days 07/15/2025 Active Zubsolv 5.7-1.4 MG 1 tablet under the t ongue and allow to dissolve Sublingual Once a day Active Immunizations Vaccine Route Administration Date Status Comme nts influenza IM Intramuscular 08/17/2020 Administered Influenza, seasonal, injectable, preservative free, 3 yrs and above IM Intramuscular 08/13/2019 Administered Problems Problem Type SNOMED Code ICD Code Onset Dates Problem Status W/U Status Risk Notes Problem Anxiety (24778422) Anxiety (F41.9) Active confi rmed Problem Annual health maintenance examination (48756763) Annual physical exam (Z00.00) Active confirmed Problem Vitamin D deficiency (36232064) Vitamin D deficiency (E55.9) Active confirmed Problem Mixed hyperlipidemia (675714418) Hyperlipemia, mixed (E78.2) Active confirmed Problem Vitamin B>12< deficiency anaemia (79365368) Anemia due to vitamin B12 deficiency, unspecified B12 deficiency type (D51.9) Active confirmed Problem Addiction (38521924) Addiction (F19.20) Active confirmed Problem Low testosterone (339837846) Low testosterone (R79.89) Active confirmed Problem History of opioid abuse (091070149350434) History of opioid abuse (F11.11) Active confirmed Vital Signs Heart Rate 83 /min 07/31/2025 Oximetry 97 % 07/31/2025 Blood pressure diastolic 74 mm Hg 07/31/2025 Height 69 in 07/31/2025 Blood pressure systolic 126 mm Hg 07/31/2025 Weight 156.0 lbs 07/31/2025 BMI 23.03 kg/m2 07/31/2025 Encounters Encounter Location Date Provider Diagnosis [facility] [address] [place] [address] 11/11/2024 TALAL BIGGS Insomnia due to medi eloy condition G47.01 ; Opioid dependence, uncomplicated F11.20 ; Anxiety F41.9 and Acquired hyperlipoproteinemia E78.5 [facility] [address] [place] [address] 12/05/2024 RINA HICKEY Drug-induced constip ation K59.[address] [facility] [address] [place] [address] 02/10/2025 CINTHIA SANTOS Low testosterone R79 .89 ; History of opioid abuse F11.11 ; Hyperlipemia, mixed E78.2 ; Anxiety F41.9 and Encounter for examination of blood pressure without abnormal findings Z01.[address] [facility] [address] [place], [place] 07/31/2025 CINTHIA TOM Low testosterone R79 .89 ; Adult general medical exam Z00.00 ; History of opioid abuse F11.11 ; Hyperlipemia, mixed E78.2 ; Anxiety F41.9 and Encounter for examination of blood pressure without abnormal findings Z01.30 [facility] [address] [place] [address] 08/21/2024 CINTHIA TOM [facility] [address] [place] [address] 08/22/2024 CINTHIA TOM [facility] [address] [place] [address] 09/18/2024 TALAL BIGGS [facility] [address] [place] [address] 10/21/2024 TALAL BIGGS [facility] [address] [place] [address] 12/04/2024 CINTHIA TOM [facility] [address] [address] 12/05/2024 RINA EDELMIRA [facility] [address] [place], [place] 12/17/2024 CINTHIA TOM [facility] [address] [place], [place] 12/25/2024 TALAL BIGGS Testosterone deficie ncy E34.[address] [facility] [address] [place] [address] 07/08/2025 CINTHIA TOM [facility] [address] [place] [address] 08/20/2024 TALAL BIGGS [facility] [address] [place] [address] 09/17/2024 TALAL BIGGS [facility] [address] [place] [address] 10/21/2024 TALAL BIGGS [facility] [address] [place] [address] 11/18/2024 FCO BIGGS [facility] [address] [address] 12/17/2024 LILIANA FABIAN [facility] [address] [address] 02/17/2025 CINTHIA TOM [facility] [address] [address] 03/18/2025 NATALIYA ALBERTS [facility] [address] [address] 04/11/2025 CINTHIA TOM [facility] [address] [address] 05/18/2025 CINTHIA TOM [facility] [address] [address] 07/14/2025 WAYNE MCKOY Assessments Encounter Date Diagnosis (ICD Code) Assessment Notes Treatment Notes Treatment Clinical Notes Section Notes 11/11/2024 Opioid dependence, uncomplicated (ICD-10 - F11.20) patient past medical history of insomnia chronic anxiety history of substance abuse doing well from a medical perspective. Reviewed [place] prescription monitoring program reviewed lorazepam along with maintaining sleep hygiene. Continue Suboxone. This is through an outside MD. Patient will come back for follow-up in 3 months 11/11/2024 Insomnia due to medical condition (ICD-10 - G47.01) patient past medical history of insomnia chronic anxiety history of substance abuse doing well from a medical perspective. Reviewed [place] prescription monitoring program reviewed lorazepam along with maintaining sleep hygiene. Continue Suboxone. This is through an outside MD. Patient will come back for follow-up in 3 months 12/05/2024 Drug-induced constipation (ICD-10 - K59.03) Avelina is a 39-year-old male with a PMH of OUD, anxiety that presents for evaluation of constipation x 6 days. Constipation likely due to use of Zubsolv sublingual medication. Patient typically moves bowels once every 3 days however has been unable to move bowels since 11/29/2024. Taking Metamucil and MiraLAX daily without improvement. Patient continues to pass gas. Physical exam without acute findings. Abdomen is soft and nondistended. There is no tenderness to palpation. No palpable masses. Discussed the importance of bowel regimen given use of Zubsolv. Recommending daily fiber supplement in addition to stool softener i.e. senna or docusate. In addition to the daily regimen the patient may use MiraLAX or Dulcolax as needed. Given the duration of his current symptoms recommending use of magnesium citrate drink. Should the patient not successfully move his bowels with use of magnesium citrate, consider use of glycerin suppository. Patient understands that these are available [id number] and he demonstrates understanding of the above plan. Could consider linzess if no return of regular bowel function with above regimen. Reviewed ED protocol. He understands to seek immediate medical attention should he develop abdominal pain or be unable to pass gas. All questions answered to the patient's satisfaction. Patient demonstrates understanding of diagnosis and treatments discussed. Follow-up at next scheduled appointment, sooner should any questions/concerns arise. Case discussed with collaborating physician Julito Biggs who has reviewed the assessment/plan. Chart, medications, labs, and vital signs reviewed. Dictation completed with the use of [employer] voice recognition software, prone to medical misidentifications and grammatical errors. All errors are unintentional. Although the practitioner does try to identify and correct errors, some may be present. Please do not hesitate to contact the practitioner for clarification. 12/25/2024 Testosterone deficiency (ICD-10 - E34.9) 02/10/2025 Low testosterone (ICD-10 - R79.89) Avelina is a pleasant 39-year-old male with a past medical history of addiction, hyperlipidemia, anxiety who presents to the office today for 3-month follow-up. #History of addiction: Continue Zubsolv with [place] medical prescriber once a month... #Anxiety: Continue lorazepam [...] oil, fish oil to increase his HDL.. All questions have been answered to patient's satisfaction. Patient verbalized understanding of diagnosis and treatments explained. Advised to call sooner prior to next visit it any questions/concerns arise. Case discussed with Julito KEARNS who reviewed the assessment and plan. Chart, medications, labs, vital signs reviewed. Dictation was accomplished with the use of [employer] voice recognition software, which is prone to medical misidentifications and grammatical errors. This are unintentional and the practitioner does try to identify and correct these, but some could still be present. Please do not hesitate to contact practitioner for clarification. 02/10/2025 History of opioid abuse (ICD-10 - F11.11) Avelina is a pleasant 39-year-old male with a past medical history of addiction, hyperlipidemia, anxiety who presents to the office today for 3-month follow-up. #History of addiction: Continue Zubsolv with [facility] prescriber once a month... #Anxiety: Continue lorazepam [...] oil, fish oil to increase his HDL.. All questions have been answered to patient's satisfaction. Patient verbalized understanding of diagnosis and treatments explained. Advised to call sooner prior to next visit it any questions/concerns arise. Case discussed with Julito KEARNS who reviewed the assessment and plan. Chart, medications, labs, vital signs reviewed. Dictation was accomplished with the use of [employer] recognition software, which is prone to medical misidentifications and grammatical errors. This are unintentional and the practitioner does try to identify and correct these, but some could still be present. Please do not hesitate to contact practitioner for clarification. 07/31/2025 Adult general medica l exam (ICD-10 - Z00.00) Avelina is a [...] lost his job. He has started with [employer] [employer] and he states that the job so far is going well which is reassuring. Patient declines therapy resources at this time, however I did educate patient to call the office if he feels as though he would benefit from referral #History of addiction: Continue Zubsolv with [facility] prescriber once a month... #Anxiety: Continue lorazepam [...] log exercise and discussed fitness Apps like e-Zassi which can help keep log off calories [...] Dictation was accomplished with the use of [employer] voice recognition software, which is prone to medical misidentifications and grammatical errors. This are unintentional and the practitioner does try to identify and correct these, but some could still be present. Please do not hesitate to contact practitioner for clarification. 07/31/2025 Low testosterone (ICD-10 - R79.89) Avelina [...] lost his job. He has started with [employer] [employer] and he states that the job so far is going well which is reassuring. Patient declines therapy resources at this time, however I did educate patient to call the office if he feels as though he would benefit from referral #History of addiction: Continue Zubsolv with [facility] prescriber once a month... #Anxiety: Continue lorazepam [...] log exercise and discussed fitness Apps like e-Zassi which can help keep log off calories [...] Dictation was accomplished with the use of [employer] voice recognition software, which is prone to [...] lost his job. He has started with [employer] [employer] and he states that the job so far is going well which is reassuring. Patient declines therapy resources at this time, however I did educate patient to call the office if he feels as though he would benefit from referral #History of addiction: Continue Zubsolv with [facility] prescriber once a month... #Anxiety: Continue lorazepam [...] log exercise and discussed fitness Apps like e-Zassi which can help keep log off calories [...] it any questions/concerns arise. Case discussed with Jultio KEARNS who reviewed the assessment and plan. Chart, medications, labs, vital signs reviewed. Dictation was accomplished with the use of [employer] voice recognition software, which is prone to medical misidentifications and grammatical errors. This are unintentional and the practitioner does try to identify and correct these, but some could still be present. Please do not hesitate to contact practitioner for clarification. 02/10/2025 Hyperlipemia, mixed (ICD-10 - E78.2) Avelina is a pleasant 39-year-old male with a past medical history of addiction, hyperlipidemia, anxiety who presents to the office today for 3-month follow-up. #History of addiction: Continue Zubsolv with [facility] prescriber once a month... #Anxiety: Continue lorazepam [...] oil, fish oil to increase his HDL.. All questions have been answered to patient's satisfaction. Patient verbalized understanding of diagnosis and treatments explained. Advised to call sooner prior to next visit it any questions/concerns arise. Case discussed with Julito KEARNS who reviewed the assessment and plan. Chart, medications, labs, vital signs reviewed. Dictation was accomplished with the use of [employer] recognition software, which is prone to medical misidentifications and grammatical errors. This are unintentional and the practitioner does try to identify and correct these, but some could still be present. Please do not hesitate to contact practitioner for clarification. 11/11/2024 Anxiety (ICD-10 - F41.9) patient past medical history of insomnia chronic anxiety history of substance abuse doing well from a medical perspective. Reviewed [place] prescription monitoring program reviewed lorazepam along with maintaining sleep hygiene. Continue Suboxone. This is through an outside MD. Patient will come back for follow-up in 3 months 11/11/2024 Acquired hyperlipoproteinemia (ICD-10 - E78.5) patient past medical history of insomnia chronic anxiety history of substance abuse doing well from a medical perspective. Reviewed [place] prescription monitoring program reviewed lorazepam along with maintaining sleep hygiene. Continue Suboxone. This is through an outside MD. Patient will come back for follow-up in 3 months 02/10/2025 Anxiety (ICD-10 - F41.9) Avelina is a pleasant 39-year-old male with a past medical history of addiction, hyperlipidemia, anxiety who presents to the office today for 3-month follow-up. #History of addiction: Continue Zubsolv with [facility] prescriber once a month... #Anxiety: Continue lorazepam [...] oil, fish oil to increase his HDL.. All questions have been answered to patient's satisfaction. Patient verbalized understanding of diagnosis and treatments explained. Advised to call sooner prior to next visit it any questions/concerns arise. Case discussed with Julito KEARNS who reviewed the assessment and plan. Chart, medications, labs, vital signs reviewed. Dictation was accomplished with the use of [employer] voice recognition software, which is prone to [...] lost his job. He has started with [employer] and he states that the job so far is going well which is reassuring. Patient declines therapy resources at this time, however I did educate patient to call the office if he feels as though he would benefit from referral #History of addiction: Continue Zubsolv with [facility] prescriber once a month... #Anxiety: Continue lorazepam [...] log exercise and discussed fitness Apps like e-Zassi which can help keep log off calories [...] Dictation was accomplished with the use of [employer] voice recognition software, which is prone to medical misidentifications and grammatical errors. This are unintentional and the practitioner does try to identify and correct these, but some could still be present. Please do not hesitate to contact practitioner for clarification. 02/10/2025 Encounter for examination of blood pressure without abnormal findings (ICD-10 - Z01.30) Avelina is a pleasant 39-year-old male with a past medical history of addiction, hyperlipidemia, anxiety who presents to the office today for 3-month follow-up. #History of addiction: Continue Zubsolv with [facility] prescriber once a month... #Anxiety: Continue lorazepam [...] oil, fish oil to increase his HDL.. All questions have been answered to patient's satisfaction. Patient verbalized understanding of diagnosis and treatments explained. Advised to call sooner prior to next visit it any questions/concerns arise. Case discussed with Julito KEARNS who reviewed the assessment and plan. Chart, medications, labs, vital signs reviewed. Dictation was accomplished with the use of [employer] voice recognition software, which is prone to [...] lost his job. He has started with [employer] and he states that the job so far is going well which is reassuring. Patient declines therapy resources at this time, however I did educate patient to call the office if he feels as though he would benefit from referral #History of addiction: Continue Zubsolv with [facility] prescriber once a month... #Anxiety: Continue lorazepam [...] log exercise and discussed fitness Apps like e-Zassi which can help keep log off calories [...] Dictation was accomplished with the use of [employer] voice recognition software, which is prone to [...] lost his job. He has started with [employer] [employer] and he states that the job so far is going well which is reassuring. Patient declines therapy resources at this time, however I did educate patient to call the office if he feels as though he would benefit from referral #History of addiction: Continue Zubsolv with [facility] prescriber once a month... #Anxiety: Continue lorazepam [...] log exercise and discussed fitness Apps like e-Zassi which can help keep log off calories [...] Dictation was accomplished with the use of [employer] voice recognition software, which is prone to medical misidentifications and grammatical errors. This are unintentional and the practitioner does try to identify and correct these, but some could still be present. Please do not hesitate to contact practitioner for clarification. Plan Of Treatment Pending Test Test Name Order Date Testosterone,Free and Total 07/31/2025 Lipid Panel 10/31/2018 Lipid Panel 05/12/2020 Comp. Metabolic Panel (14) 05/12/2020 Comp. Metabolic Panel (14) 10/31/2018 CBC 10/31/2018 CBC 05/12/2020 Urinalysis 05/12/2020 EKG 04/11/2023 SEX HORMONE BINDING GLOBULIN (SHBG) 12/01 LIPID PANEL, STANDARD 02/08/2022 LIPID PANEL, STANDARD 07/05/2021 LIPID PANEL, STANDARD 11/11/2024 LIPID PANEL, STANDARD 08/14/2023 LIPID PANEL, STANDARD 02/12/2024 COMPREHENSIVE METABOLIC PANEL 02/12/2024 COMPREHENSIVE METABOLIC PANEL 02/10/2025 COMPREHENSIVE METABOLIC PANEL 07/31/2025 COMPREHENSIVE METABOLIC PANEL 07/05/2021 COMPREHENSIVE METABOLIC PANEL 08/14/2023 COMPREHENSIVE METABOLIC PANEL 02/08/2022 CBC (H/H, RBC, INDICES, WBC, PLT) 2020 CBC (INCLUDES DIFF/PLT) 08/14/2023 CBC (INCLUDES DIFF/PLT) 02/12/2024 CBC (INCLUDES DIFF/PLT) 11/11/2024 CBC (INCLUDES DIFF/PLT) 02/08/2022 URINALYSIS, COMPLETE 02/12/2024 URINALYSIS, COMPLETE 07/31/2025 URINALYSIS, COMPLETE 02/08/2022 URINALYSIS, COMPLETE 08/14/2023 URINALYSIS, COMPLETE 07/05/2021 VITAMIN B12 07/31/2025 T4, FREE 08/14/2023 TSH 08/14/2023 TSH 11/11/2024 VITAMIN D,25-OH,TOTAL,IA 08/14/2023 VITAMIN D,25-OH,TOTAL,IA 07/31/2025 TESTOSTERONE, TOTAL, MS 12/25/2024 TESTOSTERONE, TOTAL, MS 11/11/2024 TESTOSTERONE, FREE (DIALYSIS) AND TOTAL, MS 02/10/2025 Sex Hormone Binding Globulin 07/31/2025 Sex Hormone Binding Globulin 02/10/2025 Future Test Test Name Order Date CBC (COMPLETE BLOOD COUNT) 06/18/2021 COMPREHENSIVE METABOLIC PANEL 06/18/2021 LIPID PANEL 06/18/2021 COMPLETE URINALYSIS 06/18/2021 Next Appt Details Provider Name:CINTHIA SANTOS, 08:00:00 AM, [address], [place], [address], Insurance Providers Payer Name Payer Address Payer Phone Subscriber Number Group Number Insured Name Patient Relationship to Insured Coverage Start Date Coverage End Date [employer] Admin [address] [address] [place] [address] [phone] [id number] AVELINA KHAN Self - patient is the insured Medical (General) History Medical History History ICD Code Addiction F19.20 Hyperlipemia, mixed E78.2 Anxiety F41.9 Hospitalization History Reason Date(Month/Year) [facility] tooth extraction complication Jan 2024
[2025-07-31 18:27] LABS: Vitamin B12 297 pg/mL (200-900)
[2025-08-05 16:58] LABS: Testosterone, Free 26.0 pg/mL (35.0-155.0)
== END 2025-07-31 15:49 | disposition home or self-care (01) ==
LOC: HO.HKASLDS 15:48
PROVIDERS: PCP Internal Medicine
DX: Z00.00 Encounter for general adult medical examination without abnormal findings (principal); E55.9 Vitamin D deficiency, unspecified; D51.9 Vitamin B12 deficiency anemia, unspecified; R79.89 Other specified abnormal findings of blood chemistry
CPT/HCPCS: 36415; 80053; 81003; 82306; 82607; 84270; 84402; 84403